=== PATIENT | female | born 1985 | race American Indian/Alaskan Native ===

== ENCOUNTER 2016-08-15 02:14 | Emergency (ER) | payer OTHER ==
[2016-08-15 02:45] VITALS: BP 136/84
--- NOTE | 2016-08-15 04:07 | XRay Report ---
FINAL REPORT PROCEDURE: XR WRIST 2V RT TECHNIQUE: Right wrist radiographs, including AP, lateral, and oblique views. CPT 10569 HISTORY: post fall wrist pain COMPARISON: No prior studies are available for comparison. FINDINGS: Fracture (s) and/or Dislocation(s): None . Alignment: Normal . Joint space(s): Normal . Soft tissues: Normal . Bone mineralization: Normal . Foreign bodies: None . IMPRESSION: Normal Examination.
--- NOTE | 2016-08-15 04:34 | XRay Report ---
FINAL REPORT PROCEDURE: XR TIBIA FIBULA 2V LT TECHNIQUE: LEFT tibia and fibula radiographs, AP and lateral views. CPT 59087 HISTORY: post fall lower leg pain COMPARISON: No prior studies are available for comparison. FINDINGS: Fracture (s) and/or Dislocation(s): None . Joint space(s): Normal . Soft tissues: Normal . Bone mineralization: Normal . Foreign bodies: None . IMPRESSION: Normal Examination.
--- NOTE | 2016-08-15 04:35 | XRay Report ---
FINAL REPORT PROCEDURE: XR TIBIA FIBULA 2V RT TECHNIQUE: RIGHT tibia and fibula radiographs, AP and lateral views. CPT 58136 HISTORY: post fall lower leg pain COMPARISON: No prior studies are available for comparison. FINDINGS: Fracture (s) and/or Dislocation(s): None . Joint space(s): Normal . Soft tissues: Normal . Bone mineralization: Normal . Foreign bodies: None . IMPRESSION: Normal Examination.
--- NOTE | 2016-08-15 04:37 | XRay Report ---
FINAL REPORT PROCEDURE: XR HUMERUS 2 LT TECHNIQUE: LEFT humerus radiographs, AP and lateral views. HISTORY: post fall left arm pain COMPARISON: No prior studies are available for comparison. FINDINGS: Fracture (s) and/or Dislocation(s): None . Joint space(s): Normal. Soft tissues: There is soft tissue swelling of the upper arm. There is no mass. Bone mineralization: Normal. Foreign bodies: None. IMPRESSION: There is no acute bony abnormality. There is soft tissue swelling of the upper arm. There is no mass.
--- NOTE | 2016-08-15 04:38 | XRay Report ---
FINAL REPORT PROCEDURE: XR SHOULDER 2 LT TECHNIQUE: Left shoulder radiographs including AP views in internal and external rotation and abduction. CPT 53317 HISTORY: post fall shoulder pain COMPARISON: No prior studies are available for comparison. FINDINGS: Fracture (s) and/or Dislocation(s): None . Joint space(s): Normal . Soft tissues: Normal . Bone mineralization: Normal . Foreign bodies: None . IMPRESSION: Normal Examination
[2016-08-15] MEDS ORDERED: MOTRIN PO ONE (06:12)
--- NOTE | 2016-08-15 06:16 | Emergency Department Report ---
ED Fall HPI - General Chief Complaint: Fall Stated Complaint: FALL/BODY PAIN Time Seen by Provider: 08/15/16 06:10 Source: patient Mode of arrival: Ambulatory - History of Present Illness Initial Comments: 31-year-old -[place] female comes in status post fall tonight while at work. Patient reports that she was coming down some stairs and started to fall. He went to brace herself by grabbing onto the rail with her right hand and then she grabbed the rail with her left hand and that's where she started to have some shoulder pain in her left side. She reports that she has right wrist and left shoulder all the way down to her arm left knee left leg and right leg pain. She has no past medical history currently takes no medication has no known drug allergies. MD Complaint: fall - Related Data Previous Rx's Medication Instructions Recorded Last Taken Type Naproxen [Naprosyn TAB] 500 mg PO BID #30 tablet 08/15/16 Unknown Rx methOCARBAMOL [Robaxin TAB] 500 mg PO BID #30 tab 08/15/16 Unknown Rx Allergies Allergy/AdvReac Type Severity Reaction Status Date / Time No Known Allergies Allergy Verified 08/15/16 02:36 ED Review of Systems ROS: Stated complaint: FALL/BODY PAIN Other details as noted in HPI Constitutional: denies: chills, fever Eyes: denies: eye pain, eye discharge, vision change ENT: denies: ear pain, throat pain Respiratory: denies: cough, shortness of breath, wheezing Cardiovascular: denies: chest pain, palpitations Endocrine: no symptoms reported Musculoskeletal: arthralgia, myalgia Skin: denies: rash, lesions Neurological: denies: headache, weakness, paresthesias ED Past Medical Hx - Past Medical History Previous Medical History?: No - Surgical History Past Surgical History?: No - Social History Smoking Status: Never Smoker Substance Use Type: None - Medications Home Medications: Home Medications Medication Instructions Recorded Confirmed Last Taken Type Naproxen [Naprosyn TAB] 500 mg PO BID #30 tablet 08/15/16 Unknown Rx methOCARBAMOL [Robaxin TAB] 500 mg PO BID #30 tab 08/15/16 Unknown Rx ED Physical Exam - General Limitations: No Limitations General appearance: alert, in no apparent distress - Head Head exam: Present: atraumatic, normocephalic - Eye Eye exam: Present: normal appearance - ENT ENT exam: Present: mucous membranes moist - Expanded Upper Extremity Exam Left Shoulder Exam: Present: normal inspection, full ROM. Absent: tenderness, swelling Upper Arm exam: Present: normal inspection, full ROM. Absent: tenderness, swelling Right Shoulder Exam: Present: normal inspection Upper Arm exam: Present: normal inspection Elbow exam: Present: normal inspection Forearm Wrist exam: Present: normal inspection, full ROM, deformity, crepidus, dislocation. Absent: tenderness, swelling Hand Wrist exam: Present: normal inspection, full ROM, tenderness. Absent: swelling Neuro motor exam: Present: wrist extension intact, thumb opposition intact, thumb IP flexion intact, thumb adduction intact, fingers 2-5 abduction intact Vascular: Present: normal capillary refill. Absent: vascular compromise - Expanded Lower Extremity Exam Right Lower Leg exam: Present: full ROM, tenderness (just below the knee), swelling ( is below the knee) Ankle exam: Present: normal inspection, full ROM. Absent: tenderness, swelling ED Course Vital Signs 08/15/16 02:36 Temperature 98.1 F Pulse Rate 81 Respiratory 18 Rate Blood Pressure 136/84 O2 Sat by Pulse 100 Oximetry ED Medical Decision Making - Medical Decision Making Patient has been evaluated by this provider in fast track. Discussed with patient that we can give her a Motrin for pain. That all her x-rays were within normal limits. That would discharge her on naproxen and Robaxin for pain management. Discussed with her that she'll need a few days off of work so she can recover patient verbalized understanding. Critical care attestation.: If time is entered above; I have spent that time in minutes in the direct care of this critically ill patient, excluding procedure time. ED Disposition Clinical Impression: Fall (on) (from) other stairs and steps, initial encounter, Wrist pain, right, Shoulder lesion, left Contusion of right leg Qualifiers: Encounter type: sequela Qualified Code(s): S80.11XS - Contusion of right lower leg, sequela Disposition: DISCHARGED TO HOME OR SELFCARE Is pt being admited?: No Does the pt Need Aspirin: No Condition: Stable Instructions: Fall Prevention (ED) Additional Instructions: Pain medication and muscle relaxant as prescribed. Please follow-up with your primary care provider. Prescriptions: methOCARBAMOL [Robaxin TAB] 500 mg PO BID #30 tab Naproxen [Naprosyn TAB] 500 mg PO BID #30 tablet Referrals: [facility] [Outside] - 3-5 Days Forms: Work/School Release Form(ED)
== END 2016-08-15 06:46 | disposition home or self-care (01) ==
LOC: ED 02:14
DX: S80.11XA Contusion of right lower leg, initial encounter (principal); M25.531 Pain in right wrist; M25.512 Pain in left shoulder; W10.9XXA Fall (on) (from) unspecified stairs and steps, initial encounter; Y93.89 Activity, other specified; Y92.89 Other specified places as the place of occurrence of the external cause; Y99.8 Other external cause status
CPT/HCPCS: 99283